=== PATIENT | female | born 1955 | race Hispanic/Latino ===

== ENCOUNTER 2018-09-30 13:07 | Observation (INO) | payer BC ==
[2018-09-30 13:07] VITALS: BMI 22.7
--- NOTE | 2018-09-30 14:33 | ED PDOC ---
HPI: Chest Pain Time Seen by Provider: 09/30/18 13:53 Chief Complaint (Nursing): Chest Pain Chief Complaint (Provider): Chest Pain History Per: Patient History/Exam Limitations: no limitations Onset/Duration Of Symptoms: Days (x 3) Current Symptoms Are (Timing): Still Present Quality: Tightness, "Pain" Exacerbating Factors: Deep Breathing Additional Complaint(s): 62 year old female with a history of CVA (x7?), COPD and psoriatic arthritis presents to the ED for evaluation of left sided chest pain and tightness for t hree days. Patient reports she tried to pull a mattress topper that was too heavy just prior to onset. Pain is worse with movement and deep inspiration. She also reports intermittent swelling in her legs, the left worse than the right. She denies a cough and other complaints. PMD: Dr. Garcia Past Medical History Reviewed: Historical Data, Nursing Documentation, Vital Signs Vital Signs: Last Vital Signs Temp 98.3 F 09/30/18 13:13 Pulse 74 09/30/18 13:13 Resp 16 09/30/18 13:13 BP 161/79 H 09/30/18 13:13 Pulse Ox 99 09/30/18 13:13 - Medical History PMH: Anxiety, Arthritis, COPD, HTN, Migraine Denies: Diabetes, Hepatitis, HIV, Chronic Kidney Disease, Seizures, Sexually Transmitted Disease - Surgical History Other surgeries: hysterectomy and oopherectomy - Family History Family History: States: Unknown Family Hx - Immunization History Hx Tetanus Toxoid Vaccination: No Hx Influenza Vaccination: No Hx Pneumococcal Vaccination: No - Home Medications Home Medications: Ambulatory Orders Medication Instructions Recorded Acetaminophen/Butalbital/Caf 1 tab PO Q4 PRN 05/15/17 [Fioricet] Albuterol Sulfate [Albuterol 2 puff IH Q6 PRN 05/15/17 Sulfate Hfa] Aspirin [Aspirin Chewable] 81 mg PO DAILY 05/15/17 Topiramate [Topamax] 50 mg PO HS 05/15/17 Clopidogrel [Plavix] 75 mg PO DAILY tab 05/26/17 Baclofen [Lioresal] 10 mg PO Q12 PRN 09/30/18 Cholecalciferol [Vitamin D 1000 IU] 1 tab PO DAILY 09/30/18 Gabapentin [Neurontin] 300 mg PO Q12 09/30/18 HYDROmorphone [Dilaudid] 4 mg PO Q6 PRN 09/30/18 Morphine Sulfate [Morphine Sulfate 30 mg PO Q12 09/30/18 ER] Multivitamin [Multi-Vitamin Daily] 1 tab PO DAILY 09/30/18 Pantoprazole Sodium [Protonix] 40 mg PO DAILY 09/30/18 Propranolol [Inderal] 20 mg PO Q12 09/30/18 Propylene Glycol/Peg 400/Pf 1 drop EACHEYE Q6 PRN 09/30/18 [Systane 0.3-0.4% Eye Drop] Topiramate [Topamax] 25 mg PO QAM 09/30/18 Verapamil [Calan Tab] 40 mg PO Q8 09/30/18 Vitamin B Complex [Super B-50 1 cap PO DAILY 09/30/18 Complex] diaZEpam [Valium] 10 mg PO Q12 09/30/18 - Allergies Allergies/Adverse Reactions: Allergies Allergy/AdvReac Type Severity Reaction Status Date / Time Sulfa (Sulfonamide Allergy ANAPHYLAXIS Verified 09/30/18 13:13 Antibiotics) MAGALY Risk Score for UA/NSTEMI - MAGALY Risk Score Age > 64: NO 3 or more CAD Risk Factors: YES Known CAD (Stenosis greater than 50%): NO Aspirin use in past 7 days: NO Severe Angina: NO EKG ST changes greater than 0.5mm: NO Positive Cardiac Marker: NO MAGALY Score: 1 Risk %: 5% Wells Criteria for PE - Wells Criteria for Pulmonary Embolism Clinical Signs and Symptoms of DVT: No P.E is #1 Diagnosis, or Equally Likely: No Heart Rate >100: No Immobilization at least 3 days;Surgery previous 4 weeks: No Previous, objectively diagnosed PE or DVT: No Hemoptysis: No Malignancy w/treatment within 6 months, or palliative: No Total Score: 0 Review of Systems ROS Statement: Except As Marked, All Systems Reviewed And Found Negative Cardiovascular: Positive for: Chest Pain Respiratory: Negative for: Cough, Shortness of Breath Musculoskeletal: Positive for: Other (intermittent leg swelling) Physical Exam - Reviewed Nursing Documentation Reviewed: Yes Vital Signs Reviewed: Yes - Physical Exam Appears: Positive for: Non-toxic, No Acute Distress Head Exam: Positive for: ATRAUMATIC, NORMAL INSPECTION, NORMOCEPHALIC Skin: Positive for: Normal Color, Warm, Dry Eye Exam: Positive for: EOMI, Normal appearance, PERRL Neck: Positive for: Normal, Painless ROM, Supple Cardiovascular/Chest: Positive for: Regular Rate, Rhythm, Other (pain in chest with ROM of left shoulder). Negative for: Chest Non Tender, Murmur Respiratory: Positive for: Normal Breath Sounds Gastrointestinal/Abdominal: Positive for: Normal Exam, Soft. Negative for: Tenderness Back: Positive for: Normal Inspection. Negative for: L CVA Tenderness, R CVA Tenderness Extremity: Positive for: Normal ROM (x 4) Neurological/Psych: Positive for: Awake, Alert, Normal Tone, Oriented (x 3). Negative for: Motor/Sensory Deficits - Laboratory Results Result Diagrams: 09/30/18 15:12 09/30/18 15:12 - ECG O2 Sat by Pulse Oximetry: 99 (RA) Pulse Ox Interpretation: Normal Medical Decision Making Medical Decision Makin:09 Impression: chest pain and leg swelling Differential dxs include but are not limited to: ACS, CHF, Consider DVT and PE Initial Plan: --EKG --BNP --BMP --Troponin --CBC --D Dimer --PTT --PT --Duplex US ----- Scribe Attestation: Documented by Vickie Starks, acting as a scribe Cynthia Cárdenas MD Provider Scribe Attestation: All medical record entries made by the Scribe were at my direction and personally dictated by me. I have reviewed the chart and agree that the record accurately reflects my personal performance of the history, physical exam, medical decision making, and the department course for this patient. I have also personally directed, reviewed, and agree with the discharge instructions and disposition Disposition - Clinical Impression Clinical Impression: Chest pain - Patient ED Disposition Is Patient to be Admitted: Yes Discussed With : Fredy Garcia Doctor Will See Patient In The: Hospital Counseled Patient/Family Regarding: Studies Performed, Diagnosis - Disposition Disposition Time: 16:00 Condition: FAIR - Pt Status Changed To: Hospital Disposition Of: Observation - POA Present On Arrival: None
[2018-09-30 15:25] LABS: BASO % 0.5 % (0.0-2.0); EOS # 0.3 K/uL (0.0-0.7); EOS % 5.3 % (0.0-4.0); HEMOGLOBIN 11.6 g/dL (12.0-16.0); LYMPH # 1.6 K/uL (1.0-4.3); LYMPH % 24.6 % (20.0-40.0); MEAN CELL VOLUME 96.6 fl (81.0-99.0); MEAN CORPUSCULAR HEMOGLOBIN 33.2 pg (27.0-31.0); MEAN CORPUSCULAR HGB CONC 34.4 g/dL (33.0-37.0); MEAN PLATELET VOLUME 8.5 fl (7.2-11.7); MONO # 0.6 K/uL (0.0-0.8); MONO % 8.9 % (0.0-10.0); NEUT % 60.7 % (50.0-75.0); NRBC % 0.1 % (0.0-0.0); RBC 3.51 Mil/uL (3.80-5.20); RED CELL DISTRIBUTION WIDTH 13.1 % (11.5-14.5); WHITE BLOOD COUNT 6.6 K/uL (4.8-10.8)
[2018-09-30 15:28] LABS: BLOOD UREA NITROGEN 5 mg/dl (7-17); GFR NON-AFRICAN AMERICAN > 60
[2018-09-30 15:39] LABS: PROTHROMBIN TIME 11.2 Seconds (9.8-13.1)
[2018-09-30 15:40] LABS: B-TYPE NATRIURETIC PEPTIDE 260 pg/ml (0-900)
--- NOTE | 2018-09-30 15:41 | US ---
Date of service: 09/30/2018 PROCEDURE: Bilateral lower extremity venous duplex Doppler. HISTORY: leg swelling R>L COMPARISON: None available. TECHNIQUE: Bilateral common femoral, superficial femoral, popliteal and posterior tibial veins were evaluated. Flow was assessed with color Doppler, compressibility, assessment of phasic flow and augmentation response. FINDINGS: COMMON FEMORAL VEIN: Right CFV: Normal. Left CFV: Bonnie. SUPERFICIAL FEMORAL VEIN: Right SFV: Normal. Left SFV: Normal. POPLITEAL VEIN: Right Popliteal: Normal. Left Popliteal: Normal. POSTERIOR TIBIAL VEIN: Right PTV: Normal. Left PTV: Normal. OTHER FINDINGS: None. IMPRESSION: No evidence of deep venous thrombosis.
[2018-09-30 15:42] LABS: PARTIAL THROMBOPLASTIN TIME 32.2 Seconds (25.6-37.1)
[2018-09-30 15:53] LABS: D DIMER < 200 ng/mlDDU (0-230)
--- NOTE | 2018-09-30 17:04 | RAD ---
Date of service: 09/30/2018 HISTORY: Unspecified chest pain. COMPARISON: No prior. FINDINGS: LUNGS: No active pulmonary disease. PLEURA: No significant pleural effusion identified, no pneumothorax apparent. CARDIOVASCULAR: No atherosclerotic calcification present Normal. OSSEOUS STRUCTURES: No significant abnormalities. VISUALIZED UPPER ABDOMEN: Normal. OTHER FINDINGS: None. IMPRESSION: No active disease.
[2018-09-30] MEDS ORDERED: Apap-Butalbital-Caffeine 325-50-40mg Tab PO PRN (21:20)
[2018-09-30] MEDS ORDERED: PROPYLENE GLYCOL EACHEYE PRN (21:20)
[2018-09-30] MEDS ORDERED: PEG EACHEYE PRN (21:20)
[2018-09-30] MEDS ORDERED: oxyCODONE 5 mg Immediate Release Tab PO PRN (21:27)
--- NOTE | 2018-10-01 05:54 | CARD ---
APPROVED REPORT Date of service: 09/30/2018 EKG Measurement Heart [id number] <Conclusion> Sinus rhythm with 1st degree AV block Possible Left atrial enlargement Abnormal ECG
[2018-10-01 08:14] VITALS: RESP 20
[2018-10-01] MEDS ORDERED: Enoxaparin 40 mg Syringe SC SCH (09:00)
[2018-10-01] MEDS ORDERED: Patient's Own Med (Vitamin B Complex [Super B-50 Complex] 1 CAP) PO SCH (09:00)
[2018-10-01] MEDS ORDERED: Cholecalciferol 1,000 INTLU TAB PO SCH (09:00)
[2018-10-01] MEDS ORDERED: Pantoprazole 40 mg EC Tab PO SCH (09:00)
[2018-10-01] MEDS ORDERED: Pneumococcal 23-Valent Vaccine IM ONE (11:00)
[2018-10-01] MEDS ORDERED: Influenza Vaccine 60 mcg/0.5 mL SYR (4YR UP) IM ONE (11:00)
[2018-10-01 12:32] VITALS: BP 162/78; PULSE 60; TEMP 98.6; O2SAT 97
--- NOTE | 2018-10-01 23:40 | CP.PCM.DIS ---
Provider - Provider Date of Admission: 09/30/18 16:28 Attending physician: Fredy Garcia MD Time Spent in preparation of Discharge (in minutes): 20 Diagnosis - Discharge Diagnosis (1) Chest pain Status: Acute Priority: Medium (2) Headache Status: Acute Priority: Low (3) Physical deconditioning Status: Acute Priority: Medium (4) Anxiety Status: Chronic Priority: Low Hospital Course - Lab Results Lab Results: Most Recent Lab Values WBC 6.6 K/uL (4.8-10.8) 09/30/18 15:12 RBC 3.51 Mil/uL (3.80-5.20) L 09/30/18 15:12 Hgb 11.6 g/dL (12.0-16.0) L 09/30/18 15:12 Hct 33.9 % (34.0-47.0) L 09/30/18 15:12 MCV 96.6 fl (81.0-99.0) 09/30/18 15:12 MCH 33.2 pg (27.0-31.0) H 09/30/18 15:12 MCHC 34.4 g/dL (33.0-37.0) 09/30/18 15:12 RDW 13.1 % (11.5-14.5) 09/30/18 15:12 Plt Count 235 K/uL (130-400) 09/30/18 15:12 MPV 8.5 fl (7.2-11.7) 09/30/18 15:12 Neut % (Auto) 60.7 % (50.0-75.0) 09/30/18 15:12 Lymph % (Auto) 24.6 % (20.0-40.0) 09/30/18 15:12 [place] % (Auto) 8.9 % (0.0-10.0) 09/30/18 15:12 Eos % (Auto) 5.3 % (0.0-4.0) H 09/30/18 15:12 Baso % (Auto) 0.5 % (0.0-2.0) 09/30/18 15:12 Neut # (Auto) 4.0 K/uL (1.8-7.0) 09/30/18 15:12 Lymph # (Auto) 1.6 K/uL (1.0-4.3) 09/30/18 15:12 [place] # (Auto) 0.6 K/uL (0.0-0.8) 09/30/18 15:12 Eos # (Auto) 0.3 K/uL (0.0-0.7) 09/30/18 15:12 Baso # (Auto) 0.0 K/uL (0.0-0.2) 09/30/18 15:12 PT 11.2 Seconds (9.8-13.1) 09/30/18 15:12 INR 1.0 09/30/18 15:12 APTT 32.2 Seconds (25.6-37.1) 09/30/18 15:12 D-Dimer, Quantitative < 200 ng/mlDDU (0-230) 09/30/18 15:12 Sodium 133 mmol/l (132-148) 09/30/18 15:12 Potassium 4.6 MMOL/L (3.6-5.0) 09/30/18 15:12 Chloride 102 mmol/L (98-107) 09/30/18 15:12 Carbon Dioxide 22 mmol/L (22-30) 09/30/18 15:12 Anion Gap 14 (10-20) 09/30/18 15:12 BUN 5 mg/dl (7-17) L 09/30/18 15:12 Creatinine 0.7 mg/dl (0.7-1.2) 09/30/18 15:12 Est GFR ( Amer) > 60 09/30/18 15:12 Est GFR (Non-Af Amer) > 60 09/30/18 15:12 Random Glucose 96 mg/dL (65-105) 09/30/18 15:12 Calcium 9.0 mg/dL (8.4-10.2) 09/30/18 15:12 Troponin I < 0.0120 ng/mL (0.00-0.120) 10/01/18 10:15 NT-Pro-B Natriuret Pep 260 pg/ml (0-900) 09/30/18 15:12 Discharge Exam - Head Exam Head Exam: ATRAUMATIC, NORMAL INSPECTION, NORMOCEPHALIC Discharge Plan - Follow Up Plan Condition: FAIR Disposition: HOME/ ROUTINE Instructions: Chest Pain (DC) Additional Instructions: follow up with primary doctor in 1 week Referrals: Seman,Ahmed B, MD [Staff Provider] -
--- NOTE | 2018-10-01 23:40 | CP.PCM.HP ---
Past Patient History - Past Medical History & Family History Past Medical History?: Yes - Past Social History Smoking Status: Never Smoked - CARDIAC Hx Hypertension: Yes - PULMONARY Hx Chronic Obstructive Pulmonary Disease (COPD): Yes - NEUROLOGICAL Hx Migraine: Yes Hx Seizures: No - HEENT Hx HEENT Problems: No - RENAL Hx Chronic Kidney Disease: No - ENDOCRINE/METABOLIC Hx Endocrine Disorders: No - HEMATOLOGICAL/ONCOLOGICAL Hx Human Immunodeficiency Virus (HIV): No - INTEGUMENTARY Hx Psoriasis: Yes - MUSCULOSKELETAL/RHEUMATOLOGICAL Hx Arthritis: Yes - GASTROINTESTINAL Hx Gastrointestinal Disorders: No - GENITOURINARY/GYNECOLOGICAL Hx Sexually Transmitted Disorders: No - PSYCHIATRIC Hx Anxiety: Yes - SURGICAL HISTORY Hx Hysterectomy: Yes (2/2 fibroids) - ANESTHESIA Hx Anesthesia: Yes Hx Anesthesia Reactions: No Hx Malignant Hyperthermia: No Meds Allergies/Adverse Reactions: Allergies Allergy/AdvReac Type Severity Reaction Status Date / Time Sulfa (Sulfonamide Allergy ANAPHYLAXIS Verified 09/30/18 13:13 Antibiotics) Results - Vital Signs Recent Vital Signs: Last Vital Signs Temp 98.6 F 10/01/18 12:31 Pulse 60 10/01/18 12:31 Resp 20 10/01/18 12:31 BP 162/78 H 10/01/18 12:31 Pulse Ox 97 10/01/18 12:31 - Labs Result Diagrams: 09/30/18 15:12 09/30/18 15:12 Labs: Laboratory Results - last 24 hr 10/01/18 10:15 Troponin I < 0.0120
== END 2018-10-01 14:05 | disposition home or self-care (01) ==
LOC: H.ER 13:07 → H.ERHOLD 16:28 → H.TEL 22:40
PROVIDERS: ADMIT Internal Medicine; ATTEND Internal Medicine
DX: R07.9 Chest pain, unspecified (principal); L40.50 Arthropathic psoriasis, unspecified; I10 Essential (primary) hypertension; J44.9 Chronic obstructive pulmonary disease, unspecified; Z79.02 Long term (current) use of antithrombotics/antiplatelets; Z79.82 Long term (current) use of aspirin; Z86.73 Personal history of transient ischemic attack (TIA), and cerebral infarction without residual deficits; F41.9 Anxiety disorder, unspecified; G43.909 Migraine, unspecified, not intractable, without status migrainosus; Z23 Encounter for immunization
CPT/HCPCS: 36415; 71045; 80048; 83880; 84484; 85025; 85378; 85610; 85730; 90674; 90732; 93005; 93970; 96372; 96374; 96375; 96376; 99285; G0008; G0009; G0378; J1170; J1650; J2270